=== PATIENT | male | born 1955 | race Caucasian/White ===

== ENCOUNTER 2020-02-27 10:38 | Emergency (ER) | payer MEDICAID ==
[~2020-02-27] VITALS: Ht 182.9 cm; Wt 86.0 kg
[2020-02-27] MEDS ORDERED: normal saline 1000ml 1,000 ML IV ONE (11:15)
[2020-02-27] MEDS ORDERED: LORazepam 2 mg/ml vial IV ONE (11:15)
[2020-02-27 12:07] LABS: BASOPHILS # (AUTO) 0.1 X10'3 (0-0.2); BASOPHILS % (AUTO) 1.2 % (0-1); EOSINOPHILS % (AUTO) 0.1 % (0-6); HEMATOCRIT 37.5 % (42.0-52.0); HEMOGLOBIN 12.7 g/dl (14.0-17.9); LYMPHOCYTES # (AUTO) 0.7 X10'3 (1.1-4.8); LYMPHOCYTES % (AUTO) 13.9 % (21-51); MEAN CORPUSCULAR HEMOGLOBIN 37.7 PG (27.0-31.0); MEAN CORPUSCULAR HGB CONC 33.8 g/dL (33.0-36.5); MEAN CORPUSCULAR VOLUME 111.5 FL (78-98); MONOCYTES # (AUTO) 0.5 X10'3 (0-0.9); MONOCYTES % (AUTO) 8.9 % (2-12); NEUTROPHILS % (AUTO) 75.9 % (42-75); RED BLOOD COUNT 3.36 X10'6 (4.70-6.10); RED CELL DISTRIBUTION WIDTH 14.5 % (11.5-14.5); WHITE BLOOD COUNT 5.3 X10'3 (4.5-11.0)
[2020-02-27 12:27] LABS: ALANINE AMINOTRANSFERASE 35 U/L (12-78); ALBUMIN 2.5 G/DL (3.4-5.0); ALKALINE PHOSPHATASE 89 IU/L (46-116); ANION GAP 9 (8-16); ASPARTATE AMINO TRANSFERASE 107 U/L (10-37); BILIRUBIN,TOTAL 4.2 MG/DL (0.1-1.0); BLOOD UREA NITROGEN 7 MG/DL (7-18); BUN/CREATININE RATIO 9.1 (5.4-32.0); CALCIUM 8.4 MG/DL (8.5-10.1); CHLORIDE 106 MMOL/L (99-107); CREATININE 0.77 MG/DL (0.60-1.10); SODIUM 140 MMOL/L (135-145); eGFR > 90 ML/MIN
[2020-02-27 12:30] LABS: ETHANOL < 0.010 GM/DL (0.0-0.010); LIPASE 122 U/L (73-393)
[2020-02-27 12:31] LABS: PLATELET COUNT 46 X10'3 (140-440)
[2020-02-27 12:32] LABS: ALBUMIN/GLOBULIN RATIO 0.4 (1.1-1.5); GLUCOSE 94 MG/DL (70-104); TOTAL PROTEIN 8.1 G/DL (6.4-8.2)
[2020-02-27 12:33] LABS: PLATELET ESTIMATE DECREASED
[2020-02-27] MEDS ORDERED: thiamine 100mg/ml 2ml inj. IV ONE (13:30)
[2020-02-27] MEDS ORDERED: folic acid 1mg/0.2ml inj IV ONE (13:30)
[2020-02-27 13:39] LABS: CLARITY,URINE CLEAR (Clear); COLOR,URINE AMBER (Yellow); GLUCOSE, URINE NEGATIVE (Neg); KETONES,URINE 15 mg/dl (Neg); LEUKOCYTE ESTERASE ,URINE NEGATIVE (Neg); OCCULT BLOOD,URINE TRACE-LYSED (Neg); PROTEIN,URINE TRACE mg/dl (Neg)
[2020-02-27 13:41] LABS: UA COLLECTION TYPE STRAIGHT CATH
[2020-02-27 13:45] LABS: NITRITES, URINE NEGATIVE (Neg)
[2020-02-27 13:47] LABS: BACTERIA,URINE NONE SEEN /HPF (Neg); MUCUS STRANDS FEW /LPF (Neg); RBC,URINE NONE SEEN /HPF (0-2); SQUAMOUS EPITHELIAL CELL,UR FEW /LPF (FEW); WBC,URINE 0-4 /HPF (0-4)
[2020-02-27 13:49] LABS: URINE AMPHETAMINE SCREEN NEGATIVE (Neg); URINE BARBITUATE SCREEN NEGATIVE (Neg); URINE BENZODIAZEPINES SCREEN NEGATIVE (Neg); URINE CANNABINOID SCREEN NEGATIVE (Neg); URINE COCAINE SCREEN NEGATIVE (Neg); URINE METHADONE SCREEN NEGATIVE (Neg); URINE OPIATE SCREEN NEGATIVE (Neg); URINE PHENCYCLIDINE SCREEN NEGATIVE (Neg)
[2020-02-27] MEDS ORDERED: POTA10TA19 PO (13:50)
[2020-02-27] MEDS ORDERED: LIDOcaine 2% 10ml TOPICAL JELLY (Urojet) TP ONE (13:50)
[2020-02-27] MEDS ORDERED: FURO-150 PO (13:50)
[2020-02-27 15:25] VITALS: BP 161/83
== END 2020-02-27 15:35 | disposition home or self-care (01) ==
LOC: ER 10:39
DX: K70.31 Alcoholic cirrhosis of liver with ascites (principal); R33.9 Retention of urine, unspecified; R00.0 Tachycardia, unspecified; F10.10 Alcohol abuse, uncomplicated; Z60.2 Problems related to living alone; Z79.899 Other long term (current) drug therapy; Y90.0 Blood alcohol level of less than 20 mg/100 ml
CPT/HCPCS: 36415; 74176; 80053; 80305; 80320; 81001; 82140; 83690; 83880; 85025; 93005; 96360; 99285; J7030; 51702; 85008